=== PATIENT | female | born 1940 | race Caucasian/White ===

== ENCOUNTER 2017-01-04 13:26 | Emergency (ER) | payer MEDICARE, MEDICAID ==
[~2017-01-04] VITALS: Ht 162.6 cm; Wt 42.0 kg
[~2017-01-04 13:26] MED LIST: Z.0.NO CURRENT MEDS
[2017-01-04 13:28] VITALS: BP 118/56; PULSE 72; RESP 15; TEMP 97.7; O2SAT 98
--- NOTE | 2017-01-04 16:15 | PD ---
HPI Chief Complaint: Injury Time Seen by Provider: 16:15 Travel History International Travel<30 days: No Contact w/Intl Traveler<30days: No Traveled to known affect area: No History of Present Illness HPI 76-year-old female presents the ED for evaluation of 9 day history of left knee pain. Patient states that she lost her balance, fell directly onto the left knee. She has been ambulatory since the accident. She states that her knee feels unstable. She denies numbness, tingling, weakness or limitations to range of motion. His previous injury to the area. No treatment attempted at home. Followed by the Drs. Sabrina HOOPER Past Medical History Arthritis: Yes Cancer: No Cardiovascular Problems: No COPD: Yes Diabetes: No Diminished Hearing: No Glaucoma: No Hepatitis: No Hiatal Hernia: No Hypertension: No Musculoskeletal: Yes Neurologic: No Reproductive: Yes (HYST) Respiratory: Yes Thyroid Disease: No ?: Not Menopausal: Yes Past Surgical History Abdominal Surgery: Yes (APPENDIX) Appendectomy: Yes Eye Surgery: Yes (CATARACTLEFT) Gynecologic Surgery: Yes (HYSTERECTOMY) Hysterectomy: Yes Thoracic Surgery: Yes Other Surgery: Yes (LEFT KNEE SX) Social History Alcohol Use: Yes (PT WON'T STATE HOW OFTEN SHE DRINKS) Tobacco Use: Yes (PT STATES IT'S HER BUSINESS-4 PPD) Substance Use: No Allergies-Medications (Allergen,Severity, Reaction): Coded Allergies: DO NOT USE (Verified Allergy, Severe, HIVES, 02/27/12) Darvocet-N 100 (Verified Allergy, Severe, HIVES, 02/27/12) Latex (Verified Allergy, Severe, HIVES, 02/27/12) Penicillin (Verified Allergy, Severe, 02/27/12) Phenobarbital (Verified Allergy, Severe, HIVES, 02/27/12) Sulfa (Verified Allergy, Severe, 02/27/12) Uncoded Allergies: "CILLINS" (Allergy, Severe, 02/04/08) Reported Meds & Prescriptions Reported Meds & Active Scripts Active Reported No Current Meds (Miscellaneous Medication) Misc Review of Systems Except as stated in HPI: all other systems reviewed are Neg Physical Exam Narrative GENERAL: Well-nourished, well-developed thin, petite white female in no acute distress.. SKIN: Focused skin assessment warm/dry. Well healed scar transversing the left anterior knee in the medial to lateral direction. HEAD: Normocephalic. EYES: No scleral icterus. No injection or drainage. NECK: Supple, trachea midline. No JVD or lymphadenopathy. CARDIOVASCULAR: Regular rate and rhythm without murmurs, gallops, or rubs. RESPIRATORY: Breath sounds equal bilaterally. No accessory muscle use. GASTROINTESTINAL: Abdomen soft, non-tender, nondistended. MUSCULOSKELETAL: No cyanosis, or edema. FOCUSED LEFT LOWER EXTREMITY EXAM: 2+ DP pulse. Hohmann sign negative. No patellar balloting. Tender to palpation of the lateral aspects of femoral condyle. Patient is able to flex and extend the knee. Pain elicited with varus and valgus stress testing. Negative anterior posterior drawer. Neurovascularly intact. BACK: Nontender without obvious deformity. No CVA tenderness. Data Data Last Documented VS Vital Signs Date Time Temp Pulse Resp B/P Pulse Ox O2 Delivery O2 Flow Rate FiO2 01/04/17 13:28 97.7 72 15 118/56 98 Orders Knee, Complete (4vws) (01/04/17 16:14) Ice/Cold Pack (01/04/17 16:14) ^ Carlo Bandage (01/04/17 17:48) ^ Knee Immobilizer (01/04/17 17:48) MDM Medical Decision Making Medical Screen Exam Complete: Yes Emergency Medical Condition: Yes Differential Diagnosis Musculoskeletal pain versus contusion versus fracture versus dislocation versus internal derangement versus other Narrative Course 76-year-old female presents the ED for evaluation of 9 day history of left knee pain. Patient states that she lost her balance, fell directly onto the left knee. She has been ambulatory since the accident. She states that her knee feels unstable. She denies numbness, tingling, weakness or limitations to range of motion. His previous injury to the area. No treatment attempted at home. Followed by the Drs. Bennett. Head is reviewed. Physical exam reveals no bruising or edema of the left knee. 2+ DP pulse. Hohmann sign negative. No patellar balloting. Tender to palpation of the lateral aspects of femoral condyle. Patient is able to flex and extend the knee. Pain elicited with varus and valgus stress testing. Negative anterior posterior drawer. Neurovascularly intact. Ice pack was applied. I offered the patient pain medications which she declined. X-ray reveals no acute bony injury. Patient does report previous injury of this knee. The patient states that she is ambulatory without walking aids. I suggested that we any immobilizer and have her use a walker. She refused a walker but accepted the knee immobilizer. She is instructed to rest, ice, elevate the extremity. I offered her prescription pain medications which she stated "I will throw in the trash." She is instructed to follow-up with Dr. Bennett as planned. She indicated understanding instructions and is agreeable to care plan. She is stable and discharged home. Diagnosis Primary Impression: Left knee pain Qualified Code: M25.562 - Acute pain of left knee Referrals: Ashwin Mark MD Patient Instructions: General Instructions, Knee Pain (ED) Additional Instructions: Rest, ice, elevate the extremity. Apply ice no longer than 10-15 minutes per hour a few times a day. [id number] anti-inflammatories such as ibuprofen, as described on the label, as needed for pain. Return to normal, gentle activity as tolerated. Follow-up with Dr. Bennett as planned. MRI may be indicated for further evaluation of LEFT knee pain.. Return to the ED for any urgent or emergent medical condition. Med/Other Pt SpecificInfo: Prescription(s) given, Existing Med Changed Disposition: 01 DISCHARGE HOME Condition: Stable Courtney Rodney Jan 04, 2017 16:15
--- NOTE | 2017-01-04 17:10 | RADRPT ---
EXAM DATE/TIME: 01/04/2017 16:48 [facility] COMPARISON: No previous studies available for comparison. INDICATIONS : Trauma/ Fall 9 days ago. MEDICAL HISTORY : None. SURGICAL HISTORY : Left Knee, Right Elbow ENCOUNTER: Initial ACUITY: 1 day PAIN SCORE: 9/10 LOCATION: Left knee FINDINGS: Four view examination of the left knee demonstrates no evidence of fracture or dislocation. Bony min eralization is normal. The articular surfaces are intact. The suprapatellar soft tissues have a nor mal configuration. CONCLUSION: 1. No acute bony abnormality identified. 2. Small radiodense foreign body just beneath the skin surface anterior to the patella. Taj Bolivar MD on January 04, 2017 at 17:07 Board Certified Radiologist. This report was verified electronically.
== END 2017-01-04 18:47 | disposition home or self-care (01) ==
LOC: NEPD 13:26
DX: M25.562 Pain in left knee (principal); F17.200 Nicotine dependence, unspecified, uncomplicated; Z87.39 Personal history of other diseases of the musculoskeletal system and connective tissue; Z87.09 Personal history of other diseases of the respiratory system; W19.XXXA Unspecified fall, initial encounter
CPT/HCPCS: 73564; 99283